=== PATIENT | male | born 1945 | race Caucasian/White ===

== ENCOUNTER → 2018-10-01 | Outpatient (CLI) | payer OTHER | LOC: ULTRA 08:48 | DX: K80.20 Calculus of gallbladder without cholecystitis without obstruction (principal); M25.78 Osteophyte, vertebrae; E78.2 Mixed hyperlipidemia; Z88.2 Allergy status to sulfonamides ==

== ENCOUNTER → 2018-10-04 | Outpatient (CLI) | payer OTHER ==
--- NOTE | 2018-10-04 09:48 | EXE ---
[facility] [place] [address] STRESS ECHOCARDIOGRAM Name: ADRIEN KOTHARI Room #: REG [facility]#: [id number] ������������� Admission: 10/04/18 ������������� Attend Phys: Nicolas Kirk, Discharge: ��� ������������� ��� Date of : 47 Date of Service: 10/04/18 0948 �� Report #: [id number] �������� ��������������������������������������������[id number] THIS REPORT FOR: //name// APPROVED REPORT Study performed: 10/04/2018 09:07:44 Exam: Stress Echocardiogram Indication: Chest pain Patient Location: Out-Patient Stress Nurse: Noemy Morgan RN Status: routine Ht: 5 ft 7 in HR: 65 bpm BP: 120/80 mmHg Medical History Medications: Crestor Allergies: Sulfa Cardiac Risk Factors: Hyperlipidemia Procedure The patient underwent an Exercise Stress Test using the Robin Protocol. Blood pressure, heart rate, and EKG were monitored. An Echocardiogram was performed by avionics technician in four stages in quad fashion. At peak stress, four selected images were obtained and placed side by side with resting images for comparison. Stress Test Details Stress Test: Exercise stress testing was performed using a Robin protocol. HR Resting HR: 65 bpm Max Heart Rate (APMHR): 149 bpm Max HR Achieved: 162 bpm Target HR (85% APMHR): 126 bpm % of APMHR: 108 Recovery HR: 90 bpm HR response to stress: Normal HR response to stress BP Resting BP: 120/80 mmHg Max BP: 206/60 mmHg Recovery BP: 158/72 mmHg BP response to stress: Normal blood pressure response to stress. ECG [facility] [address] [place] [address] STRESS ECHOCARDIOGRAM Name: KOTHARIADRIEN Room #: REG [facility].#: [id number] ������������� Admission: 10/04/18 ������������� Attend Phys: Nicolas Kirk, Discharge: ��� ������������� ��� Date of : 47 Date of Service: 10/04/18 0948 �� Report #: [id number] �������� ��������������������������������������������[id number] Resting ECG: Sinus Rhythm Stress ECG: Sinus Tachycardia Recovery ECG: Sinus Rhythm Clinical Reason for Termination: Completed protocol Exercise duration: 7 min sec Highest Stage Achieved: Stage 3: 3.4 mph at 14% grade. Exercise capacity: 10.10 METs Right side/back pain before during and after stress test. 5/10. Stress ECG Conclusion 1. Subjectively negative for ischemia 2. Elective cartographic a negative for ischemia 3. Average functional capacity Pre-Stress Echo The resting Echocardiogram showed normal left ventricular contractility with an estimated Ejection Fraction of about 55-60%. Mild MR, mild TR, trivial AI. Post-Stress Echo The stress Echocardiogram showed normal left ventricular contractility with an estimated Ejection Fraction of about 65-70%. Clinical Normal augmentation of myocardial wall segments using a 17 segment model. Conclusion Clinical Response: Non-ischemic Exercise Capacity: Average Stress ECG Response: Non-ischemic Stress Echo Images: Non-ischemic 1. Low risk study Other Information Study Quality: Adequate <Conclusion> 1. Low risk study ��������������������������������������������� <ELECTRONICALLY SIGNED> ���������������������������������������� By: Sj Love MD ��������������������������������������������� 10/04/18947 7 7 Sj Love MD /INF
== END ==
LOC: CV 08:36
DX: M54.6 Pain in thoracic spine (principal); G89.29 Other chronic pain; R07.9 Chest pain, unspecified; E78.2 Mixed hyperlipidemia; Z79.899 Other long term (current) drug therapy; Z88.2 Allergy status to sulfonamides

== ENCOUNTER → 2018-10-14 | Outpatient (CLI) | payer OTHER | LOC: ULTRA 08:13 | DX: K80.20 Calculus of gallbladder without cholecystitis without obstruction (principal) ==

== ENCOUNTER 2018-10-25 07:50 | Day surgery (SDC) | payer OTHER ==
[~2018-10-25] VITALS: Ht 172.7 cm; Wt 84.4 kg
[~2018-10-25 07:50] MED LIST: CENTRUM SILVER1 EAC2 PO; CRESTOR10 MG PO; GLUCOSAMINE CH1 EAC2 PO; PEPCID20 MG PO; PRESERVISION A1 EAC2 PO; PROBIOTIC1 EAC1 PO; SAW PALMETTO500 MG PO; TADALAFIL5 M1 PO; VITAMIN D-32000 UNIT PO
[2018-10-25 08:39] LABS: HEMATOCRIT 41.7 % (42.0-52.0); HEMOGLOBIN 14.1 gm/dL (14.0-18.0)
[2018-10-25 08:46] VITALS: BP 154/79
[2018-10-25] MEDS ORDERED: NORCO 5-325 TA1 EAC1 PO (11:55)
[2018-10-25] MEDS ORDERED: ONDANSETRON HCL4 M2 PO (11:55)
--- NOTE | 2018-10-29 13:07 | PATH ---
[facility] [place] [address] PATHOLOGY RPT PROCEDURE Name: TONY COVARRUBIAS Room #: DEP [facility]..#: [id number] Admission: 10/25/18 Date of : 47 Discharge: 10/25/18 Report #: [id number] Path Case #: [id number] [facility] Accession Number: [id number] . 01 Material submitted: . gallbladder - GALLBLADDER . 01 Clinical history: . Gallbladder disease . 02 Diagnosis: Gallbladder, cholecystectomy: - Chronic cholecystitis. - Cholelithiasis. . (SKM:[place]; 10/29/2018) [facility]/10/29/2018 . 02 Electronically signed: . Roderick Ace MD, Pathologist NPI- [id number] . 01 Gross description: . The specimen is received in formalin, labeled "Tony Covarrubias, gallbladder", is a previously opened gallbladder measuring 6.0 cm in length and 2.5 cm in maximum diameter with a wrinkled and a martins-yellow serosa. The cystic duct is patent. The mucosa is martins-brown and with no cholesterolosis. There is a 0.7 cm in greatest dimension multiloculated fundal cyst is present. The wall is 0.1 cm in average thickness. Within the container there is an oval dark green calculus measuring 1.1 x 0.7 x 0.26 cm. Representatively submitted in A1. ([facility]; 10/25/2018) [facility]/ . 02 Pathologist provided ICD-10: K80.10 . 02 CPT . 341426 Specimen Comment: A courtesy copy of this report has been sent to Specimen Comment: [phone], . Specimen Comment: Report sent to / DR MORALES Performed at: [address] [id number] MD Duane Wise MD Phone: [phone] Performed at: [address] [address] PATHOLOGY RPT PROCEDURE Name: TONY COVARRUBIAS Room #: DEP [facility] Kevin.Yunior#: [id number] Admission: 10/25/18 Date of : 47 Discharge: 10/25/18 Report #: [id number] Path Case #: [id number] [address] [place] [address], [place] [id number] MD Miriam Wood MD Phone: [phone]
== END 2018-10-25 13:40 | disposition home or self-care (01) ==
LOC: OR 07:50 → TBA 07:52 → OR 13:39
PROVIDERS: Surgery
DX: K80.10 Calculus of gallbladder with chronic cholecystitis without obstruction (principal); E78.5 Hyperlipidemia, unspecified; K21.9 Gastro-esophageal reflux disease without esophagitis; F17.210 Nicotine dependence, cigarettes, uncomplicated; Z98.42 Cataract extraction status, left eye; Z98.890 Other specified postprocedural states; Z88.2 Allergy status to sulfonamides; Z79.891 Long term (current) use of opiate analgesic; Z98.41 Cataract extraction status, right eye; Z79.899 Other long term (current) drug therapy
CPT/HCPCS: 50010; 50101; 50249; 50411; 50555; 50558; 50900; 50962; 51975; 52265; 52287; 53307; 53310; 54022; 54118; 55245; 55317; 56462; 56525; 56526; 62110; 62900; 70005